=== PATIENT | female | born 1965 | race African-American/Black ===

== ENCOUNTER 2018-02-11 00:45 | Emergency (ER) | payer OTHER ==
[~2018-02-11] VITALS: Ht 170.2 cm; Wt 190.5 kg
[2018-02-11] MEDS ORDERED: ALBUTEROL SULF 2.5 MG/0.5ML(0.5%) NEB SOLN NEB STA (00:59)
[2018-02-11] MEDS ORDERED: IPRATROPIUM BROM 0.5 MG/2.5ML INH SOL NEB ONE ×2 (01:00→15:00)
[2018-02-11 03:54] LABS: Basophils # (auto) 0 uL; Basophils % (auto) 0.3 % (0.0-2.0); Eosinophils # (auto) 0 uL; Eosinophils % (auto) 0.1 % (0.0-7.0); Hematocrit 44.6 % (36.0-46.0); Hemoglobin 14.8 g/dL (12.2-16.2); Lymphocytes # (auto) 0.9 uL; Lymphocytes % (auto) 6.6 % (10.0-50.0); Mean Corpuscular Hemoglobin 30.6 pg (28.0-32.0); Mean Corpuscular Hgb Conc. 33.1 g/dL (32.0-36.0); Mean Corpuscular Volume 92.6 fL (80.0-100.0); Monocytes # (auto) 0.8 uL; Monocytes % (auto) 5.7 % (0.0-12.0); Neutrophils # (auto) 11.9 uL; Neutrophils % (auto) 87.3 % (37.0-80.0); Platelet Count (auto) 203 10^3/uL (140-450); Red Blood Cells 4.82 10^6/uL (4.0-5.20); Red Cell Distribution Width 14.4 % (11.8-14.3); White Blood Cell 13.6 10^3/uL (4.4-10.8)
[2018-02-11 04:01] LABS: Albumin 3.2 g/dL (3.4-5.0); BUN/Creatinine Ratio 12.2; Calcium 8.8 mg/dL (8.5-10.1); Potassium 3.6 mmol/L (3.5-5.1)
[2018-02-11 04:06] LABS: Bilirubin, Total 0.4 mg/dL (0.2-1.0)
[2018-02-11 05:21] LABS: INR 1.04 (0.9-1.15); Partial Thromboplastin Time 27.1 sec (22.64-33.71); Prothrombin Time 11.3 sec (9.37-12.3)
[2018-02-11 05:45] VITALS: BP 136/62
[2018-02-11] MEDS ORDERED: IOHEXOL 350 MG/ML 100ML IJ ONE (08:35)
[2018-02-11 08:57] VITALS: BP 136/62
[2018-02-11 10:30] VITALS: BP 136/66
[2018-02-11] MEDS ORDERED: cefTRIAXone 1GM/10ml IVPUSH 10 ML IV ONE (11:00)
[2018-02-11 14:42] LABS: Urine Bacteria NONE SEEN /hpf (None Seen); Urine Blood Negative /uL (Negative); Urine Mucus FEW (None Seen); Urine WBC 2 /hpf (0 - 5)
[2018-02-11 14:58] LABS: Urine Specific Gravity > 1.050 (1.001-1.035)
[2018-02-11] MEDS ORDERED: ALBUTEROL SULF 2.5 MG/0.5ML(0.5%) NEB SOLN NEB ONE (15:00)
[2018-02-11 18:45] VITALS: BP 129/75
== END 2018-02-11 18:56 | disposition short-term general hospital (02) ==
LOC: EDBD 00:45 → ER 00:45
DX: J18.9 Pneumonia, unspecified organism (principal); I10 Essential (primary) hypertension; R74.8 Abnormal levels of other serum enzymes; E44.1 Mild protein-calorie malnutrition; R79.1 Abnormal coagulation profile; E66.01 Morbid (severe) obesity due to excess calories; Z68.43 Body mass index [BMI] 50.0-59.9, adult
CPT/HCPCS: 36415; 36600; 71045; 71275; 80053; 81001; 82805; 83605; 83880; 84484; 85025; 85379; 85610; 85730; 87040; 87804; 93005; 94640; 96374; 99285; Q9967; 94644

== ENCOUNTER 2025-04-02 22:42 | Inpatient (IN) | payer MEDICARE, MEDICAID ==
[~2025-04-02] VITALS: Ht 167.6 cm; Wt 219.0 kg
--- NOTE | 2025-04-02 23:09 | ECG ---
[facility] Test Date: 2025-04-02 Test Time: 22:59:31 Pat Name: KELLIE LEDEZMA Department: ED Room: [address] [place] [address] Gender: F Pharmacy Cashier: SHERRI : 1965 Requested By: MARY CARMEN STOVALL Order Number: [id number] Reading MD: Derian Richardson Measurements Intervals [place] Rate: 131 P: 0 CT: 0 QRS: 27 QRSD: 93 T: 73 QT: 329 QTc: 486 Interpretive Statements Atrial fibrillation Low voltage, precordial leads Borderline prolonged QT interval Baseline wander in lead(s) II Electronically Signed On 04-03-2025 12:49:06 PDT by Derian Richardson Please click the below link to view image of tracing.
--- NOTE | 2025-04-02 23:12 | ED.PDOC ---
History of Present Illness HPI Comments 59 y/o morbidly obese F is BIBA from home for worsening chronic bilateral leg edema for the past week, with associated shortness of breath w/exertion. Patient denies having any chest pain, cough, congestion, fever, chills, or further associated symptoms. Chief Complaint: Shortness of Breath Time Seen by MD: 23:00 Primary Care Provider: DENIED Reviewed Notes: Nurses Notes, Medications, Allergies Allergies: Coded Allergies: NO KNOWN ALLERGIES (Unverified , 02/11/18) Information Source: Patient Mode of Arrival: EMS Severity: Moderate Past Medical History Past Medical History (Other): PNA, chronci edema Surgical History: Denies all surgeries SOFTWARE DEVELOPER CONSULTANT History: Denies all SOFTWARE DEVELOPER CONSULTANT Hx Family History Family History: Unknown Social History Smoker: Non-Smoker Alcohol: Denies ETOH Use Drugs: Denies Drug Use Lives In: Home All Other Systems: Reviewed and Negative (see HPI) Physical Exam General Appearance: No Apparent Distress, Obese HEENT: Normal ENT Inspection, Pharynx Normal, TMs Normal Neck: Full Range of Motion, Non-Tender, Normal, Normal Inspection Respiratory: Chest Non-Tender, Lungs Clear, No Accessory Muscle Use, No Respiratory Distress, Normal Breath Sounds Cardiovascular: No Edema, No JVD, No Murmur, No Gallop, Normal Peripheral Pulses, Regular Rate/Rhythm Breast Exam: Deferred Gastrointestinal: No Organomegaly, Non Tender, No Pulsatile Mass, Normal Bowel Sounds, Soft Genitalia: Deferred Pelvic: Deferred Rectal: Deferred Extremities: No calf tenderness, Normal capillary refill, Normal range of motion, Non-tender, No pedal edema, Swelling (3+edema to bilateral legs) Musculoskeletal : Apperance: Normal Neurologic: Alert, 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 Was a procedure done?: No Differential Dx Considerations may include: AFIB, URI, PNA, viral syndrome, HI, PE, ACS, among others X-Ray, Labs, Meds, VS Vital Signs Date Time Temp Pulse Resp B/P (MAP) Pulse Ox O2 Delivery O2 Flow Rate FiO2 04/03/25 00:15 112 17 96 Nasal Cannula* 3 32 04/02/25 23:45 113 17 137/79 (98) 93 04/02/25 23:01 131 04/02/25 22:52 97.8 98 20 129/86 (100) 98 97.8 Lab Test 04/02/25 23:05 Range/Units White Blood Count 10.6 4.4-10.8 10^3/uL Red Blood Count 4.04 4.0-5.20 10^6/uL Hemoglobin 12.7 12.2-16.2 g/dL Hematocrit 38.6 36.0-46.0 % Mean Corpuscular Volume 95.3 80.0-100.0 fL Mean Corpuscular Hemoglobin 31.3 28.0-32.0 pg Mean Corpuscular Hemoglobin Concent 32.8 32.0-36.0 g/dL Red Cell Distribution Width 17.4 H 11.8-14.3 % Platelet Count 189 140-450 10^3/uL Mean Platelet Volume 10.7 6.9-10.8 fL Neutrophils (%) (Auto) 83.0 H 37.0-80.0 % Lymphocytes (%) (Auto) 11.1 10.0-50.0 % Monocytes (%) (Auto) 4.6 0.0-12.0 % Eosinophils (%) (Auto) 0.8 0.0-7.0 % Basophils (%) (Auto) 0.5 0.0-2.0 % Neutrophils # (Auto) 8.8 H 1.6-8.6 10 ^3/uL Lymphocytes # (Auto) 1.2 0.4-5.4 10 ^3/uL Monocytes # (Auto) 0.5 0-1.3 10 ^3/uL Eosinophils # (Auto) 0.1 0-0.8 10 ^3/uL Basophils # (Auto) 0 0-0.2 10 ^3/uL Nucleated Red Blood Cells 0.1 % Prothrombin Time 11.4 9.3-11.8 sec Prothrombin Time INR 1.08 0.9-1.15 Activated Partial Thromboplast Time 26.8 24.5-34.5 SEC D-Dimer, Quantitative 1.02 H 0.0-0.49 mg/L FEU Sodium Level 143 136-145 mmol/L Potassium Level 4.2 3.5-5.1 mmol/L Chloride Level 106 98-107 mmol/L Carbon Dioxide Level 28 20-31 mmol/L Anion Gap 9 5-15 Blood Urea Nitrogen 9 9-23 mg/dL Creatinine 0.78 0.550-1.02 mg/dL Glomerular Filtration Rate Calc 88 >90 mL/min BUN/Creatinine Ratio 11.5 10.0-20.0 Serum Glucose 112 H 74-106 mg/dL Calcium Level 10.1 8.7-10.4 mg/dL Total Bilirubin 1.2 H 0.2-1.0 mg/dL Aspartate Amino Transferase (AST) 32 13-40 U/L Alanine Aminotransferase (ALT) 27 7-40 U/L Alkaline Phosphatase 130 H 46-116 U/L Troponin I High Sensitivity 72 *H </=34 ng/L B-Type Natriuretic Peptide 200.59 0-100 pg/mL Total Protein 7.3 5.7-8.2 g/dL Albumin 4.5 3.2-4.8 g/dL Time of 1ST Reevaluation: 23:30 Reevaluation 1ST: Unchanged Patient Education/Counseling: Diagnosis, Treatment Family Education/Counseling: No Family Present Additional Information [place] [address] Ph: [phone] DIAGNOSTIC IMAGING Diagnostic Imaging Report : [id number] Signed PATIENT: KELLIE LEDEZMA ACCT: [id number] UNIT: [id number] : 1965 LOC: ER ROOM / BED: / AGE / SEX: 59 / F ADM STATUS: REG ER SERVICE [id number] ORDERING PHYSICIAN: MARY CARMEN STOVALL MD PROCEDURE(s): CXRP - CHEST PORTABLE REASON: SOB ORDER NUMBER(s): [id number], ACCESSION NUMBER(s): [id number] CHEST RADIOGRAPH Indication: SOB Technique: Single frontal view of the chest was obtained COMPARISON: None FINDINGS: Lines and Tubes: None Lungs: There is moderate diffuse increased prominence of the pulmonary vasculature. No definite evidence of consolidation. Small bilateral pleural effusions are not excluded. No pneumothorax. Cardiomediastinal contours: Cardiomegaly. Bones: Unremarkable IMPRESSION: 1. Cardiomegaly and diffuse increased prominence of the pulmonary vasculature. 2. Small bilateral pleural effusions are not excluded. ATED BY: VICETNE HOLLIS MD DICTATED DATE/TIME: 04/03/25 0018 SIGNED BY: VICENTE HOLLIS MD SIGNED DATE/TIME: 04/03/25 0018 CC: Departure 1 Departure Time of Disposition: 00:14 Impression: Primary Impression: Peripheral edema Additional Impressions: Morbid obesity Pulmonary hypertension Intermediate coronary syndrome Disposition: ADMITTED INPATIENT Admit to: Tele Condition: Guarded Comments Bilateral Leg Edema with Shortness of Breath Chief Complaint: Worsening bilateral leg edema with shortness of breath History of Present Illness: 59-year-old female with a history of morbid obesity and chronic bilateral leg edema presents with worsening leg swelling over the past week. Patient reports increased difficulty walking due to shortness of breath with exertion. She denies significant leg pain but notes that her legs are more swollen than her baseline. She has been experiencing dyspnea with movement, which limits her mobility. Review of Systems: Constitutional: Denies fever, chills Cardiovascular: Reports leg edema Respiratory: Reports dyspnea on exertion Musculoskeletal: Denies leg pain All other systems reviewed and negative Medications: No current medications documented Allergies: No known allergies documented Past Medical History: 1. Morbid obesity 2. Chronic bilateral leg edema Lab Results: BNP: 200 Troponin: 60 (elevated) D-dimer: 1.02 (elevated) Imaging and Other Relevant Results: Chest X-ray: Demonstrates cardiomegaly and increased pulmonary vascular markings CT Angiogram: Unable to perform due to weight limitations of scanner Medical Decision Making: Summary Statement: 59-year-old female with morbid obesity presenting with worsening bilateral leg edema, dyspnea on exertion, elevated cardiac markers, and inability to complete CT imaging due to weight limitations. Problem List: 1. Worsening leg edema 2. Dyspnea on exertion 3. Elevated cardiac markers 4. Morbid obesity Differential Diagnosis: 1. Pulmonary embolism 2. Pulmonary hypertension 3. Acute coronary syndrome 4. Decompensated heart failure ED Course: Patient evaluated with labs and chest x-ray. Attempted CT angiogram but unable to complete due to weight limitations. Decision made to admit for further cardiac workup and possible VQ scan. Assessment and Plan: 1. Acute cardiopulmonary condition with multiple potential etiologies: - Admit to hospital for further evaluation - Plan for VQ scan to evaluate for PE given inability to perform CTA - Cardiac workup including serial troponins and further assessment of elevated BNP 2. Suspected pulmonary hypertension: - Will require complete cardiac evaluation during admission - Echo to assess cardiac function and pulmonary pressures 3. Morbid obesity: - Impacts current diagnostic capabilities - Will require weight management consultation during admission Billing Information: ICD-10: R60.0 - Localized edema ICD-10: R06.02 - Shortness of breath ICD-10: E66.01 - Morbid obesity ICD-10: R93.1 - Abnormal findings on diagnostic imaging of heart and coronary circulation ICD-10: I27.20 - Pulmonary hypertension, unspecified Critical Care Note Critical Care Time?: Yes (35 min-critical care time only) Critical care comment: Total critical care time: Approximately 36 minutes Due to a high probability of clinically significant, life threatening deterioration, the patient required my highest level of preparedness to inte rvene emergently and I personally spent this critical care time directly and personally managing the patient. This critical care time included obtaining a history; examining the patient; pulse oximetry; ordering and review of studies; arranging urgent treatment with development of a management plan; evaluation of patient's response to treatment; frequent reassessment; and, discussions with other providers. This critical care time was performed to assess and manage the high probability of imminent, life-threatening deterioration that could result in multi-organ failure. It was exclusive of separately billable procedures and treating other patients. Stability Stability form required: No Heart Score Heart Score: Heart Score Response (Comments) Value History Moderate Suspicious 1 EKG Repolarization Disturb 1 Age 45-64 1 Risk Factors 1 or 2 risk factors 1 Troponin 1-2 x's Normal limit 1 Total 5 I personally scribed for MARY CARMEN STOVALL MD ([email or web address]) on 04/02/25 at 23:12. Electronically submitted by Marshal Ward ([email or web address]). I personally scribed for MARY CARMEN STOVALL MD ([email or web address]) on 04/03/25 at 01:04. Electronically submitted by Marshal Ward ([email or web address]). MARY CAMREN STOVALL MD April 02, 2025 23:12
[2025-04-02 23:23] LABS: Basophils # (auto) 0 10 ^3/uL (0-0.2); Basophils % (auto) 0.5 % (0.0-2.0); Eosinophils # (auto) 0.1 10 ^3/uL (0-0.8); Eosinophils % (auto) 0.8 % (0.0-7.0); Hematocrit 38.6 % (36.0-46.0); Hemoglobin 12.7 g/dL (12.2-16.2); Lymphocytes # (auto) 1.2 10 ^3/uL (0.4-5.4); Lymphocytes % (auto) 11.1 % (10.0-50.0); Mean Corpuscular Hemoglobin 31.3 pg (28.0-32.0); Mean Corpuscular Hgb Conc. 32.8 g/dL (32.0-36.0); Mean Corpuscular Volume 95.3 fL (80.0-100.0); Monocytes # (auto) 0.5 10 ^3/uL (0-1.3); Monocytes % (auto) 4.6 % (0.0-12.0); Neutrophils # (auto) 8.8 10 ^3/uL (1.6-8.6); Nucleated Red Blood Cells % 0.1 %; Platelet Count (auto) 189 10^3/uL (140-450); Red Blood Cells 4.04 10^6/uL (4.0-5.20); Red Cell Distribution Width 17.4 % (11.8-14.3); White Blood Cell 10.6 10^3/uL (4.4-10.8)
[2025-04-02 23:36] LABS: INR 1.08 (0.9-1.15); Partial Thromboplastin Time 26.8 SEC (24.5-34.5); Prothrombin Time 11.4 sec (9.3-11.8)
[2025-04-02 23:40] LABS: Alanine Aminotransferase 27 U/L (7-40); Albumin 4.5 g/dL (3.2-4.8); Anion Gap 9 (5-15); Aspartate Aminotransferase 32 U/L (13-40); BUN/Creatinine Ratio 11.5 (10.0-20.0); Bilirubin, Total 1.2 mg/dL (0.2-1.0); Calcium 10.1 mg/dL (8.7-10.4); Carbon Dioxide 28 mmol/L (20-31); Chloride 106 mmol/L (98-107); Potassium 4.2 mmol/L (3.5-5.1); Sodium 143 mmol/L (136-145); Total Protein 7.3 g/dL (5.7-8.2)
[2025-04-02 23:43] LABS: Alkaline Phosphatase 130 U/L (46-116); Blood Urea Nitrogen 9 mg/dL (9-23); Glucose 112 mg/dL (74-106)
[2025-04-03 00:15] VITALS: PULSE 112; RESP 17; O2SAT 96
--- NOTE | 2025-04-03 00:20 | DVH ---
CHEST RADIOGRAPH Indication: SOB Technique: Single frontal view of the chest was obtained COMPARISON: None FINDINGS: Lines and Tubes: None Lungs: There is moderate diffuse increased prominence of the pulmonary vasculature. No definite evide nce of consolidation. Small bilateral pleural effusions are not excluded. No pneumothorax. Cardiomediastinal contours: Cardiomegaly. Bones: Unremarkable IMPRESSION: 1. Cardiomegaly and diffuse increased prominence of the pulmonary vasculature. 2. Small bilateral pleural effusions are not excluded.
[2025-04-03] MEDS: IOHEXOL 350 MG/ML 100ML IJ ONE (00:21)
[2025-04-03] MEDS ORDERED: SODIUM CHLORIDE 0.9% 500 ML IV ONE (00:30)
[2025-04-03] MEDS: FUROSEMIDE 40 MG/4 ML VIAL IV ONE (02:28)
[2025-04-03] MEDS: ASPirin-EC 81 mg tab PO ONE (02:28)
[2025-04-03 02:57] LABS: Urine Bacteria None Seen /hpf (None Seen)
[2025-04-03 03:32] LABS: Urine Blood Negative /uL (Negative); Urine Clarity Turbid (Clear); Urine Color Yellow (Yellow); Urine Mucus FEW (None Seen); Urine Protein, UAD 2+ (Negative); Urine Specific Gravity 1.033 (1.001-1.035); Urine Squamous Epithelial Cell FEW /hpf (<5); Urine Urobilinogen Normal (Negative); Urine WBC 1 /HPF (0-5)
[2025-04-03] MEDS ORDERED: ACETAMINOPHEN 325 MG TAB PO PRN (05:30)
[2025-04-03] MEDS ORDERED: NITROGLYCERIN 0.4 MG SL TAB SL PRN (05:30)
[2025-04-03] MEDS ORDERED: MORPHINE SULFATE INJ 2 MG/ml SYRG IV PRN (05:30)
[2025-04-03] MEDS ORDERED: ONDANSETRON HCL 4 MG/2 ML VIAL IV PRN (05:30)
[2025-04-03] MEDS: APIXABAN 5 MG TAB PO SCH (05:42)
[2025-04-03 05:43] LABS: Triglycerides 66 mg/dL (< 150)
[2025-04-03 05:44] LABS: LDL Cholesterol 75 mg/dL (< 100)
[2025-04-03 05:45] LABS: Cholesterol 139 mg/dL (< 200); HDL Cholesterol 45 mg/dL (40-59)
[2025-04-03] MEDS: FUROSEMIDE 20 MG/2 ML VIAL IV SCH (06:22)
[2025-04-03 08:00] VITALS: PULSE 133; RESP 20; O2SAT 97
[2025-04-03] MEDS: METOPROLOL TARTRATE 50 MG TAB PO SCH (10:00)
[2025-04-03] MEDS: ASPirin 81 mg TAB PO SCH (10:00)
[2025-04-03] MEDS ORDERED: ENOXAPARIN SOD 40 MG/0.4 ML SYRINGE SC SCH (10:00)
--- NOTE | 2025-04-03 11:48 | DVHCONRES ---
Date Seen: April 03, 2025 Resident Creating Document: THELMA CANDELARIO RESIDENT Reason for Consultation CHF History of Present Illness 59 year old female with past medical history of Paroxysmal Afib 2 years ago where she was prescribed metoprolol, which patient stopped taking, presented with complaints of bilateral pedal edema associated with shortness of breath. pt mentioned that she had pedal edema for last 4 years, but for last 3 days, she had edema on thighs, which made her come to the ER. She also mentioned she had redness in the lower right leg for last 4 years. She mentioned she had shortness of breath for last 3 weeks and more worse for last 3 days, correlating with NHYA class III/IV. Patient mentioned that she had an echo last year which was within normal limit, never had any stress test or LHC. On presenting to the ER, she was found to be in Afib, was started on metoprolol which she refused, started on IV lasix. Cardiology was consulted for CHF. She is currently on 2L O2, still in Afib. PMH Afib, ?CHF PSH denied Social history denied smoking, alcohol, marijuana and any other drug intake Family history denied any history of cardiac comorbidities in family members Allergies: Coded Allergies: NO KNOWN ALLERGIES (Unverified , 02/11/18) Current Medications Current Medications Medications (Trade) Dose Ordered Sig/Ani Route PRN Reason Start Time Stop Time Status Last Admin Apixaban (Eliquis) 10 mg BID PO 04/03/25 03:30 04/10/25 03:29 Furosemide (Lasix Injection) 20 mg BIDD IV 04/03/25 06:00 04/03/25 06:22 Aspirin 162 mg DAILY PO 04/03/25 10:00 Atorvastatin Calcium (Lipitor) 10 mg HS PO 04/03/25 22:00 Metoprolol Tartrate (Lopressor Tablet) 50 mg BID PO 04/03/25 10:00 Ondansetron HCl (Zofran) 4 mg Q4HP PRN IV NAUSEA / VOMITING 04/03/25 05:30 Enoxaparin Sodium (Lovenox) 40 mg DAILY SC 04/03/25 10:00 Hold Acetaminophen (Tylenol Tablet) 650 mg Q6HP PRN PO PAIN SCALE 1-3 OR TEMP>100.4 04/03/25 05:30 Nitroglycerin (Ntrostat Sublingual) 0.4 mg Q5MINP PRN SL FOR CHEST PAIN 04/03/25 05:30 Morphine Sulfate 2 mg Q30M PRN IV FOR CHEST PAIN 04/03/25 05:30 Review of Systems As described in the HPI Vital Signs Vital Signs Date Time Temp Pulse Resp B/P (MAP) Pulse Ox O2 Delivery O2 Flow Rate FiO2 04/03/25 10:00 133 20 107/80 (89) 98 04/03/25 08:00 Nasal Cannula* 2 28 04/03/25 08:00 98.3 98.3 Physical Exam Examination General Appearance: Alert, Oriented X3, Cooperative, No acute distress HEENT: EOMI Respiratory: Clear to auscultation, Normal air movement Cardiovascular: Regular rate, Normal S1, Normal S2 Abdominal: Normal bowel sounds Extremities: Bilateral Pedal edema, No cyanosis, No edema, Normal pulses, No tenderness/swelling Skin: No rashes, No breakdown Neuro: Normal gait, Normal speech, Strength at 5/5 X4 ext, Normal tone, Sensation intact, Cranial nerves 3-12 NL, Reflexes 2+ Psych/Mental Status: Mental status NL, Mood NL Labs/Diagnostic Data Labs Test 04/03/25 03:00 04/03/25 02:56 04/03/25 02:06 04/02/25 23:05 Range/Units Troponin I High Sensitivity 90 *H </=34 ng/L Thyroid Stimulating Hormone (TSH) 7.75 H 0.55-4.78 uIU/mL Urine Color Yellow Yellow Urine Clarity Turbid H Clear Urine pH 5.0 5.0-9.0 Urine Specific [place] 1.033 1.001-1.035 Urine Protein 2+ H Negative Urine Ketones Trace Negative Urine Blood Negative Negative /uL Urine Nitrite Negative Negative Urine Bilirubin Negative Negative Urine Urobilinogen Normal Negative mg/dL Urine Leukocyte Esterase Negative Negative /uL Urine RBC None seen 0 - 4 /hpf Urine Microscopic WBC 1 0-5 /HPF Urine Squamous Epithelial Cells Few <5 /hpf Urine Calcium Oxalate Crystals Mod None Seen Urine Bacteria None seen None Seen /hpf Urine Mucus Few None Seen Urine Glucose Normal Normal mg/dL Triglycerides Level 66 < 150 mg/dL Cholesterol Level 139 < 200 mg/dL LDL Cholesterol 75 < 100 mg/dL HDL Cholesterol 45 40-59 mg/dL White Blood Count 10.6 4.4-10.8 10^3/uL Red Blood Count 4.04 4.0-5.20 10^6/uL Hemoglobin 12.7 12.2-16.2 g/dL Hematocrit 38.6 36.0-46.0 % Mean Corpuscular Volume 95.3 80.0-100.0 fL Mean Corpuscular Hemoglobin 31.3 28.0-32.0 pg Mean Corpuscular Hemoglobin Concent 32.8 32.0-36.0 g/dL Red Cell Distribution Width 17.4 H 11.8-14.3 % Platelet Count 189 140-450 10^3/uL Mean Platelet Volume 10.7 6.9-10.8 fL Neutrophils (%) (Auto) 83.0 H 37.0-80.0 % Lymphocytes (%) (Auto) 11.1 10.0-50.0 % Monocytes (%) (Auto) 4.6 0.0-12.0 % Eosinophils (%) (Auto) 0.8 0.0-7.0 % Basophils (%) (Auto) 0.5 0.0-2.0 % Neutrophils # (Auto) 8.8 H 1.6-8.6 10 ^3/uL Lymphocytes # (Auto) 1.2 0.4-5.4 10 ^3/uL Monocytes # (Auto) 0.5 0-1.3 10 ^3/uL Eosinophils # (Auto) 0.1 0-0.8 10 ^3/uL Basophils # (Auto) 0 0-0.2 10 ^3/uL Nucleated Red Blood Cells 0.1 % Prothrombin Time 11.4 9.3-11.8 sec Prothrombin Time INR 1.08 0.9-1.15 Activated Partial Thromboplast Time 26.8 24.5-34.5 SEC D-Dimer, Quantitative 1.02 H 0.0-0.49 mg/L FEU Sodium Level 143 136-145 mmol/L Potassium Level 4.2 3.5-5.1 mmol/L Chloride Level 106 98-107 mmol/L Carbon Dioxide Level 28 20-31 mmol/L Anion Gap 9 5-15 Blood Urea Nitrogen 9 9-23 mg/dL Creatinine 0.78 0.550-1.02 mg/dL Glomerular Filtration Rate Calc 88 >90 mL/min BUN/Creatinine Ratio 11.5 10.0-20.0 Serum Glucose 112 H 74-106 mg/dL Calcium Level 10.1 8.7-10.4 mg/dL Total Bilirubin 1.2 H 0.2-1.0 mg/dL Aspartate Amino Transferase (AST) 32 13-40 U/L Alanine Aminotransferase (ALT) 27 7-40 U/L Alkaline Phosphatase 130 H 46-116 U/L B-Type Natriuretic Peptide 200.59 0-100 pg/mL Total Protein 7.3 5.7-8.2 g/dL Albumin 4.5 3.2-4.8 g/dL Assessment Assessment/Plan #acute hypoxic resp failure likely due to CHF #?CHF ( systolic/diastolic ) ?unknown etiology as of now, ?hypothyroidism ?Ischaemic etiology #elevated TSH #Paroxysmal Afib ( not on anticoagulation ) -[id number] 2 -HASBLED 0 #Elevated Troponin NSTEMI Type II -likely due to CHF Plan -continue with diuretics 40mg BID -ekg, trops, bnp, echo -TSH, HbA1c, lipid panel -lower extremity Doppler study -free t3/t4, -k>4, Mg>2 -PT/INR -therapeutic lovenox 1mg/kg BID -Metoprolol tartrate 25mg BID pt is refusing any procedure and refusing medications awaiting echo results, will have discussion with the patient again after echo results Case discussion with Dr Hernandez Plan/Recommendation Patient was discussed with Resident Physician Dr. Thelma Candelario. I agree with his Assessment and Plan, which was formulated with me. Plan discussed with: Patient THELMA CANDELARIO RESIDENT April 03, 2025 11:48 DAPHNIE HERNANDEZ DO April 03, 2025 21:37
[2025-04-03 12:17] LABS: Free T4 (Free Thyroxine) 1.37 ng/dL (0.89-1.76)
[2025-04-03 12:18] LABS: Free T3 3.19 pg/mL (2.3-4.2)
--- NOTE | 2025-04-03 14:28 | DVH ---
US BiLat Lower DVT HISTORY: rule out DVT COMPARISON: None TECHNIQUE: Duplex doppler evaluation of the deep venous system of the lower extremity from the common femoral veins, superficial femoral vein, great saphenous vein, deep femoral vein, popliteal vein, an d calf veins, including color doppler and spectral/pulsed waveform analysis, was performed. FINDINGS: Right: - Common femoral vein: Not seen. - Deep femoral vein: Not seen. - Femoral vein: Compressible - Popliteal vein: Not seen. - Posterior tibial vein: Not seen. - Peroneal vein: Not seen. - Other: Nothing Left: - Common femoral vein: Not seen. - Deep femoral vein: Not seen. - Femoral vein: Not seen. - Popliteal vein: Not seen. - Posterior tibial vein: Not seen. - Peroneal vein: Not seen. - Other: Nothing IMPRESSION: Limited study due to patient large body habitus, however the proximal right femoral vein is patent wi thout deep venous thrombus.
[2025-04-03] MEDS: FUROSEMIDE 20 MG/2 ML VIAL IV ONE (14:49)
[2025-04-03] MEDS: METOPROLOL TARTRATE 1MG/1ML-5ML VIAL IV ONE ×2 (14:49→15:58)
[2025-04-03] MEDS: ENOXAPARIN SOD 150 MG/1 ML SYRINGE SC ONE (14:55)
--- NOTE | 2025-04-03 15:46 | DVHPN2 ---
Subjective Continues to complain of shortness of breath. Reviewed: Care Plan, H&P, Labs Changes from previous H/P or p: No Changes General: Per HPI Objective Vitals Vital Signs Date Time Temp Pulse Resp B/P (MAP) Pulse Ox O2 Delivery O2 Flow Rate FiO2 04/03/25 15:34 119 101/74 04/03/25 14:00 20 98 04/03/25 12:00 98.2 98.2 04/03/25 08:00 Nasal Cannula* 2 28 General Appearance: Alert, Oriented X3, Cooperative, mild distress, Other (Obese) HEENT: Atraumatic, PERRLA Lungs: Clear to auscultation, Normal air movement Cardiovascular: Normal S1, Normal S2 Abdomen: Normal bowel sounds, Soft, No tenderness Musculoskeletal: Normal sensory function, Normal motor function Skin: Dry, Intact Psych/Mental Status: Mental status NL, Mood NL Medications Current Medications Medications Dose Ordered Sig/Ani Route Start Time Stop Time Status Last Admin Dose Admin Aspirin 162 mg DAILY PO 04/03/25 10:00 04/03/25 13:03 162 MG Atorvastatin Calcium 10 mg HS PO 04/03/25 22:00 Ondansetron HCl 4 mg Q4HP PRN IV 04/03/25 05:30 Acetaminophen 650 mg Q6HP PRN PO 04/03/25 05:30 Nitroglycerin 0.4 mg Q5MINP PRN SL 04/03/25 05:30 Morphine Sulfate 2 mg Q30M PRN IV 04/03/25 05:30 Furosemide 40 mg BIDD IV 04/03/25 18:00 Enoxaparin Sodium 150 mg Q12HR SC 04/03/25 23:59 Metoprolol Tartrate 25 mg BID PO 04/03/25 22:00 Laboratory Results Laboratory Tests 04/02/25 23:05 Chemistry Test 04/02/25 23:05 04/03/25 13:46 Albumin 4.5 g/dL (3.2-4.8) Calcium Level 10.1 mg/dL (8.7-10.4) Total Protein 7.3 g/dL (5.7-8.2) Magnesium Level 1.9 mg/dL (1.6-2.6) Coagulation Test 04/02/25 23:05 Prothrombin Time 11.4 sec (9.3-11.8) Prothrombin Time INR 1.08 (0.9-1.15) Activated Partial Thromboplast Time 26.8 SEC (24.5-34.5) D-Dimer, Quantitative 1.02 mg/L FEU (0.0-0.49) H Lipid panel Test 04/03/25 02:06 Cholesterol Level 139 mg/dL (< 200) HDL Cholesterol 45 mg/dL (40-59) Triglycerides Level 66 mg/dL (< 150) Cardiac Markers Test 04/02/25 23:05 B-Type Natriuretic Peptide 200.59 pg/mL (0-100) LFT Test 04/02/25 23:05 Alanine Aminotransferase (ALT) 27 U/L (7-40) Alkaline Phosphatase 130 U/L (46-116) H Aspartate Amino Transferase (AST) 32 U/L (13-40) Total Bilirubin 1.2 mg/dL (0.2-1.0) H HgA1c, TSH Test 04/03/25 03:00 04/03/25 03:10 Thyroid Stimulating Hormone (TSH) 7.75 uIU/mL (0.55-4.78) H Hemoglobin A1c 5.3 % A1C (<5.7) Urinalysis Test 04/03/25 02:56 Urine Color Yellow (Yellow) Urine Clarity Turbid (Clear) H Urine pH 5.0 (5.0-9.0) Urine Specific [place] 1.033 (1.001-1.035) Urine Protein 2+ (Negative) H Urine Ketones Trace (Negative) Urine Blood Negative /uL (Negative) Urine Nitrite Negative (Negative) Urine Bilirubin Negative (Negative) Urine Urobilinogen Normal mg/dL (Negative) Urine Leukocyte Esterase Negative /uL (Negative) Urine RBC None seen /hpf (0 - 4) Urine Microscopic WBC 1 /HPF (0-5) Urine Squamous Epithelial Cells Few /hpf (<5) Urine Calcium Oxalate Crystals Mod (None Seen) Urine Bacteria None seen /hpf (None Seen) Urine Mucus Few (None Seen) Urine Glucose Normal mg/dL (Normal) Labs and/or images reviewed: Labs reviewed by me, Image(s) reviewed by me Assessment/Plan Assessment/Plan Impression: -A.fib with RVR -Acute on Chronic Systolic Heart Failure -morbid obesity -bilateral lower extremity swelling, DVT ruled out -acute on chronic hypoxic respiratory failure -NSTEMI type 2 secondary to AFib with RVR and diastolic/systolic heart failure -hypothyroidism Plan: -cardiology consultation: Plan of care discussed with Cardiology team -continue rate control -echocardiogram, pending. Preliminary results with noted decreased ejection fraction -continue full-dose anticoagulation -thyroid supplementation -O2 supplementation to keep saturation greater than 92% -aggressive IV diuresis -start guideline directed medical therapy for heart failure -reassess for transfer stability to [facility] in a.m.. Currently unstable given patient continues to be in AFib with RVR and dyspneic. Critical care time spent with patient discussing and formulating plan of care: 40 minutes. This does not include time spent performing procedures. This medical document was created using an electronic medical record system with [employer] dictation system. Although this document has been carefully reviewed, there may still be some phonetic and typographical errors. These areas are purely typographical due to imperfections of the software programs, and do not reflect any compromise in the patient's medical care. Plan discussed with: Patient, Other (RN) Date of Service: April 03, 2025 Billing Provider: LUDY JOSE NP Common Visit Codes: [id number] CARE 30-74 MIN LUDY JOSE NP April 03, 2025 15:46
--- NOTE | 2025-04-03 16:37 | DVHSR ---
APPROVED REPORT EXAM: LIMITED Two-dimensional and M-mode echocardiogram with Doppler and color Doppler. Blood Pressure: 111/76 mmHg INDICATION ef RISK FACTORS Obesity: Height: 5'6, Weight: 475 DIMENSIONS LVDd5.9 (3.8-5.7cm)LA (2D)5.2 (1.9-4.0cm)Aortic Root3.1 (2.0-3.7cm) LVDs5.3 (2.5-4.0cm)LA (MM) (1.9-4.0cm)Aortic Cusp Exc1.7 (1.5-2.0cm) EF (%) 18.0 (55-70%)Rt. Atrium5.3 (1.9-4.0cm)Asc. Aorta cm IVSd1.0 (0.7-1.1cm)RV (D)5.6 (1.8-2.4cm) PWd1.2 (0.7-1.1cm) Mitral Valve MitralMitral Stenosis E wavem/sMV Mean GR.4mmHg A wavem/sMV Peak GR.99mmHg E/A ratio0.02D MVAcm2 Aortic Valve Aortic ValveAortic Stenosis V10.94m/Gurwinder Mean GR.5mmHg V21.32m/Gurwinder Peak GR.7mmHg LVOT Diameter2.3 (1.8-2.4cm)Doppler AVA2.96cm2 Pulmonic Valve V20.97m/s Tricuspid Valve TR Velocity2.73m/s [id number] Other Information Quality : Technically LimitedRhythm : Technically limited study due to body habitus.patient position.patient moving. Conclusion Technically difficult study. Difficult acoustic windows. LV enlargement. Concentric LVH. Biatrial enlargement. Mild thickening of the anterior mitral leaflet. Aortic and tricuspid are structurally normal. The p ulmonic valve is not clearly visualized. Left ventricular function is diminished. Underlying global hypokinesis. EF is approximately 20%. R V function appears to be moderately diminished. Dopplers unremarkable. No pericardial effusion masses or vegetations.
[2025-04-03] MEDS: FUROSEMIDE 40 MG/4 ML VIAL IV SCH (17:30)
[2025-04-03 18:26] VITALS: BP 118/73; PULSE 65; RESP 20; TEMP 97.8; O2SAT 98
[2025-04-03 20:00] VITALS: PULSE 132
[2025-04-03 20:32] LABS: Amphetamine Screen, Urine Neg (NEGATIVE); Barbiturate Scree,Urine Neg (NEGATIVE); Benzodiazephine Screen, Urine Neg (NEGATIVE); Cannabinoid Screen, Urine Neg (NEGATIVE); Cocaine Screen, Urine Neg (NEGATIVE); Opiate Scree,Urine Neg (NEGATIVE); Phencyclidine Screen, Urine Neg (NEGATIVE)
[2025-04-03 21:00] VITALS: BP 122/77; PULSE 92; RESP 20; TEMP 97.4; O2SAT 94
[2025-04-03] MEDS: METOPROLOL TARTRATE 25 MG TAB PO SCH (22:19)
[2025-04-03] MEDS: ATORVASTATIN 20 MG TAB PO SCH (22:20)
[2025-04-03] MEDS ORDERED: ENOXAPARIN SOD 150 MG/1 ML SYRINGE SC SCH (23:59)
[2025-04-04] VITALS (8 sets, daily range): BP systolic 100–132; BP diastolic 59–95; PULSE 64–130; RESP 17–22; TEMP 97.1–98.8; O2SAT 17–98
--- NOTE | 2025-04-04 00:51 | DVHHP2 ---
History of Present Illness Reason for Visit: Shortness for breath History of Present Illness 59-year-old female presents for evaluation of shortness for breath. Patient with a history of congestive heart failure reports a one-week history of worsening shortness for breath with mild exertion. She also reports substernal chest pressure and bilateral lower extremity swelling. Past Medical History Congestive heart failure, hypertension, ? lymphedema Past Surgical History Denies Family History Noncontributory Smoke: No ALCOHOL: none Drugs: None Lives: with Family Review of Systems Review of Systems Review of systems are currently negative otherwise addressed in HPI. Allergies: Coded Allergies: NO KNOWN ALLERGIES (Unverified , 02/11/18) Medications Current Medications Medications Dose Ordered Sig/Ani Route Start Time Stop Time Status Last Admin Dose Admin Aspirin 162 mg DAILY PO 04/03/25 10:00 04/03/25 13:03 162 MG Atorvastatin Calcium 10 mg HS PO 04/03/25 22:00 04/03/25 22:20 10 MG Ondansetron HCl 4 mg Q4HP PRN IV 04/03/25 05:30 Acetaminophen 650 mg Q6HP PRN PO 04/03/25 05:30 Nitroglycerin 0.4 mg Q5MINP PRN SL 04/03/25 05:30 Morphine Sulfate 2 mg Q30M PRN IV 04/03/25 05:30 Furosemide 40 mg BIDD IV 04/03/25 18:00 04/03/25 17:30 40 MG Metoprolol Tartrate 25 mg BID PO 04/03/25 22:00 04/03/25 22:19 25 MG Enoxaparin Sodium 150 mg Q12HR SC 04/04/25 03:00 Exam Vital Signs Vital Signs Date Time Temp Pulse Resp B/P (MAP) Pulse Ox O2 Delivery O2 Flow Rate FiO2 04/03/25 23:19 117 128/89 04/03/25 21:00 97.4 20 94 97.4 04/03/25 20:00 Nasal Cannula* 3 32 Exam Gen: 59-year-old female in mild distress, morbidly obese Skin: Warm, dry, normal color and texture, no rash. HEENT: Normocephalic atraumatic, mucous membranes moist and pink. Neck: Cervical and supraclavicular nodes normal without enlargement, trachea is midline, thyroid gland is normal without masses. Pulmonary: Clear to auscultation and percussion bilaterally. Cardiac: Regular rate and rhythm. No murmur Abdomen: Soft, nontender, nondistended, bowel sounds present all 4 quadrants, no guarding, no rigidity, no organomegaly. Extremities: No cyanosis, clubbing, plus three bilateral lower extremity swelling Neuro: Cranial nerves II through XII grossly intact, normal affect and speech, no focal motor deficits. Labs/Xrays ORDERING PHYSICIAN: MARY CARMEN STOVALL MD PROCEDURE(s): CXRP - CHEST PORTABLE REASON: SOB ORDER NUMBER(s): [id number], ACCESSION NUMBER(s): [id number] CHEST RADIOGRAPH Indication: SOB Technique: Single frontal view of the chest was obtained COMPARISON: None FINDINGS: Lines and Tubes: None Lungs: There is moderate diffuse increased prominence of the pulmonary vasculature. No definite evidence of consolidation. Small bilateral pleural effusions are not excluded. No pneumothorax. Cardiomediastinal contours: Cardiomegaly. Bones: Unremarkable IMPRESSION: 1. Cardiomegaly and diffuse increased prominence of the pulmonary vasculature. 2. Small bilateral pleural effusions are not excluded. Labs Test 04/03/25 13:46 04/03/25 03:10 04/03/25 03:00 04/03/25 02:56 Range/Units Magnesium Level 1.9 1.6-2.6 mg/dL Troponin I High Sensitivity 62 *H </=34 ng/L Hemoglobin A1c 5.3 <5.7 % A1C Free Thyroxine (T4) Calculated 1.37 0.89-1.76 ng/dL Free Triiodothyronine (T3) pg/mL 3.19 2.3-4.2 pg/mL Thyroid Stimulating Hormone (TSH) 7.75 H 0.55-4.78 uIU/mL Urine Color Yellow Yellow Urine Clarity Turbid H Clear Urine pH 5.0 5.0-9.0 Urine Specific [place] 1.033 1.001-1.035 Urine Protein 2+ H Negative Urine Ketones Trace Negative Urine Blood Negative Negative /uL Urine Nitrite Negative Negative Urine Bilirubin Negative Negative Urine Urobilinogen Normal Negative mg/dL Urine Leukocyte Esterase Negative Negative /uL Urine RBC None seen 0 - 4 /hpf Urine Microscopic WBC 1 0-5 /HPF Urine Squamous Epithelial Cells Few <5 /hpf Urine Calcium Oxalate Crystals Mod None Seen Urine Bacteria None seen None Seen /hpf Urine Mucus Few None Seen Urine Glucose Normal Normal mg/dL Urine Opiates Screen Neg NEGATIVE Urine Fentanyl Screen Neg NEGATIVE Urine Barbiturates Screen Neg NEGATIVE Urine Phencyclidine Screen Neg NEGATIVE Urine Amphetamines Screen Neg NEGATIVE Urine Benzodiazepines Screen Neg NEGATIVE Urine Cocaine Screen Neg NEGATIVE Urine Cannabinoids Screen Neg NEGATIVE Test 04/03/25 02:06 04/02/25 23:05 Range/Units Triglycerides Level 66 < 150 mg/dL Cholesterol Level 139 < 200 mg/dL LDL Cholesterol 75 < 100 mg/dL HDL Cholesterol 45 40-59 mg/dL White Blood Count 10.6 4.4-10.8 10^3/uL Red Blood Count 4.04 4.0-5.20 10^6/uL Hemoglobin 12.7 12.2-16.2 g/dL Hematocrit 38.6 36.0-46.0 % Mean Corpuscular Volume 95.3 80.0-100.0 fL Mean Corpuscular Hemoglobin 31.3 28.0-32.0 pg Mean Corpuscular Hemoglobin Concent 32.8 32.0-36.0 g/dL Red Cell Distribution Width 17.4 H 11.8-14.3 % Platelet Count 189 140-450 10^3/uL Mean Platelet Volume 10.7 6.9-10.8 fL Neutrophils (%) (Auto) 83.0 H 37.0-80.0 % Lymphocytes (%) (Auto) 11.1 10.0-50.0 % Monocytes (%) (Auto) 4.6 0.0-12.0 % Eosinophils (%) (Auto) 0.8 0.0-7.0 % Basophils (%) (Auto) 0.5 0.0-2.0 % Neutrophils # (Auto) 8.8 H 1.6-8.6 10 ^3/uL Lymphocytes # (Auto) 1.2 0.4-5.4 10 ^3/uL Monocytes # (Auto) 0.5 0-1.3 10 ^3/uL Eosinophils # (Auto) 0.1 0-0.8 10 ^3/uL Basophils # (Auto) 0 0-0.2 10 ^3/uL Nucleated Red Blood Cells 0.1 % Prothrombin Time 11.4 9.3-11.8 sec Prothrombin Time INR 1.08 0.9-1.15 Activated Partial Thromboplast Time 26.8 24.5-34.5 SEC D-Dimer, Quantitative 1.02 H 0.0-0.49 mg/L FEU Sodium Level 143 136-145 mmol/L Potassium Level 4.2 3.5-5.1 mmol/L Chloride Level 106 98-107 mmol/L Carbon Dioxide Level 28 20-31 mmol/L Anion Gap 9 5-15 Blood Urea Nitrogen 9 9-23 mg/dL Creatinine 0.78 0.550-1.02 mg/dL Glomerular Filtration Rate Calc 88 >90 mL/min BUN/Creatinine Ratio 11.5 10.0-20.0 Serum Glucose 112 H 74-106 mg/dL Calcium Level 10.1 8.7-10.4 mg/dL Total Bilirubin 1.2 H 0.2-1.0 mg/dL Aspartate Amino Transferase (AST) 32 13-40 U/L Alanine Aminotransferase (ALT) 27 7-40 U/L Alkaline Phosphatase 130 H 46-116 U/L B-Type Natriuretic Peptide 200.59 0-100 pg/mL Total Protein 7.3 5.7-8.2 g/dL Albumin 4.5 3.2-4.8 g/dL Assessment/Plan Assessment/Plan Assessment Acute on chronic congestive heart failure Elevated troponin, demand ischemia Hypertension Morbid obesity Noncompliant Plan Admit the patient to telemetry to the hospitalist Echocardiogram pending Resume home medications IV Lasix Continue treatment per orders Plan discussed with: Patient My Orders Orders - JOE KELLER M AGACNP Procedure Category Date Status Time Aspirin Tablet PHA 04/03/25 In Process 10:00 Atorvastatin (Lipitor) PHA 04/03/25 In Process 22:00 * Cardiology Consult CONS 04/03/25 Transmitted 05:21 Basic Metabolic Panel LAB 04/04/25 Logged 04:00 Admit ADMIT 04/03/25 Transmitted 05:21 Ondansetron Hcl PHA 04/03/25 In Process (Zofran) 05:30 Cardiac DIET 04/03/25 Transmitted Diet-2gna,Lofat,Lochol Breakfast Echo 2d Mode Cardiac US 04/03/25 Resulted DOP 05:21 Condition: Fair MARY ANN 04/03/25 In Process 05:21 Acetaminophen Tablet PHA 04/03/25 In Process (Tylenol Tablet) 05:30 Bedrest With Bathroom MARY ANN 04/03/25 In Process Privileg 05:21 Nitroglycerin [facility] 04/03/25 In Process Sublingual (Ntrostat 05:30 Morphine Sulfate PHA 04/03/25 In Process Injection 05:30 Stat Ekg For Chest [facility] 04/03/25 In Process Pain 05:21 Notify Md Of Changes [facility] 04/03/25 In Process From Base 05:21 Head End Desizing Machine Operator For [facility] 04/03/25 In Process 24 Hours 05:21 Emergency Dysrhythmia [facility] 04/03/25 In Process Protocol 05:21 Rhythm Strips Once [facility] 04/03/25 In Process Every Shift 05:21 Oxygen By Nasal RT 04/03/25 Transmitted Cannula 05:21 Pharmacy [facility] 04/03/25 In Process Clarification: 23:59 Date of Service: April 03, 2025 Billing Provider: JOE KELLER Common Visit Codes: [id number] INP/OBS CARE (HIGH) JOE KELLER April 04, 2025 00:51
[2025-04-04] MEDS: ENOXAPARIN SOD 150 MG/1 ML SYRINGE SC SCH (02:22)
[2025-04-04 06:47] LABS: Chloride 105 mmol/L (98-107); Sodium 143 mmol/L (136-145)
[2025-04-04 06:48] LABS: Anion Gap 11 (5-15); Calcium 9.6 mg/dL (8.7-10.4); Carbon Dioxide 27 mmol/L (20-31); Potassium 3.3 mmol/L (3.5-5.1)
[2025-04-04 06:53] LABS: BUN/Creatinine Ratio 13.5 (10.0-20.0); Blood Urea Nitrogen 10 mg/dL (9-23)
[2025-04-04 07:04] LABS: Glucose 118 mg/dL (74-106)
[2025-04-04] MEDS: POTASSIUM EFFERVESENT TAB 25 MEQ PO ONE (09:26)
--- NOTE | 2025-04-04 09:41 | DVHPN2 ---
Progress Note Date Seen: April 04, 2025 Resident Creating Document: THELMA CHUNG RESIDENT Medical Necessity Reason Pt with a Central, PICC or Fol: No Subjective Review of Systems History of Present Illness 59 year old female with past medical history of Paroxysmal Afib 2 years ago where she was prescribed metoprolol, which patient stopped taking, presented with complaints of bilateral pedal edema associated with shortness of breath. pt mentioned that she had pedal edema for last 4 years, but for last 3 days, she had edema on thighs, which made her come to the ER. She also mentioned she had redness in the lower right leg for last 4 years. She mentioned she had shortness of breath for last 3 weeks and more worse for last 3 days, correlating with NHYA class III/IV. Patient mentioned that she had an echo last year which was within normal limit, never had any stress test or LHC. On presenting to the ER, she was found to be in Afib, was started on metoprolol which she refused, started on IV lasix. Cardiology was consulted for CHF. She is on 2L O2, still in Afib. PMH Afib, ?CHF PSH denied Social history denied smoking, alcohol, marijuana and any other drug intake Family history denied any history of cardiac comorbidities in family members Interval Events 04/04/25 -pt is mentioning mild improvement in her symptoms of shortness of breath and pedal edema -had mild bleeding from gums today morning -pt is refusing Lovenox and GDMT despite explaining the risks -pt is refusing LHC for ischaemic workup after understanding the risks I/O with a net of -4.4 lt in last 24 hrs Objective vital signs Vital Sign Date Time Temp Pulse Resp B/P (MAP) Pulse Ox O2 Delivery O2 Flow Rate FiO2 04/04/25 05:56 110/71 04/04/25 05:00 98.1 79 22 94 98.1 04/03/25 20:00 Nasal Cannula* 3 32 Total Intake and Output 04/03/25 04/03/25 04/04/25 15:00 23:00 07:00 Intake Total 600 ml Output Total 1950 ml 1000 ml 2100 ml Balance -1950 ml -1000 ml -1500 ml medications Current Medications Medications Dose Ordered Sig/Ani Route Start Time Stop Time Status Last Admin Dose Admin Aspirin 162 mg DAILY PO 04/03/25 10:00 04/03/25 13:03 162 MG Atorvastatin Calcium 10 mg HS PO 04/03/25 22:00 04/03/25 22:20 10 MG Ondansetron HCl 4 mg Q4HP PRN IV 04/03/25 05:30 Acetaminophen 650 mg Q6HP PRN PO 04/03/25 05:30 Nitroglycerin 0.4 mg Q5MINP PRN SL 04/03/25 05:30 Morphine Sulfate 2 mg Q30M PRN IV 04/03/25 05:30 Furosemide 40 mg BIDD IV 04/03/25 18:00 04/04/25 05:56 40 MG Metoprolol Tartrate 25 mg BID PO 04/03/25 22:00 04/03/25 22:19 25 MG Enoxaparin Sodium 150 mg Q12HR SC 04/04/25 03:00 04/04/25 02:22 150 MG Examination Examination General Appearance: Alert, Oriented X3, Cooperative, No acute distress HEENT: EOMI Respiratory: Clear to auscultation, Normal air movement Cardiovascular: Regular rate, Normal S1, Normal S2 Abdominal: Normal bowel sounds Extremities: Bilateral Pedal edema, No cyanosis, No edema, Normal pulses, No tenderness/swelling Skin: No rashes, No breakdown Neuro: Normal gait, Normal speech, Strength at 5/5 X4 ext, Normal tone, Sensation intact, Cranial nerves 3-12 NL, Reflexes 2+ Psych/Mental Status: Mental status NL, Mood NL laboratory and microbiology Laboratory Tests 04/04/25 05:27 04/02/25 23:05 Test 04/04/25 05:27 Range/Units Serum Glucose 118 H 74-106 mg/dL Labs and/or images reviewed: Labs reviewed by me, Image(s) reviewed by me Problem List/Assessment/Plan Problem List/Assessment/Plan Assessment/Plan #acute hypoxic Resp failure likely due to CHF #Acute HFrEF ?unknown etiology as of now ?Ischaemic etiology #Biventricular failure -EF 20% on echo #Paroxysmal Afib ( was not on anticoagulation before admission ) -[id number] 2 -HASBLED 0 #Non-sustained VTach -currently on Beta-blockers #Elevated Troponin NSTEMI Type II -likely due to CHF and Afib Plan -continue with diuretics 40mg BID -ekg, trops, bnp, echo -TSH, HbA1c, lipid panel -lower extremity Doppler study -free t3/t4, -k>4, Mg>2 -PT/INR -therapeutic Lovenox 1mg/kg BID with switching to DOACs -Metoprolol tartrate 25mg BID for Afib with target HR <110, IV metroprolol PRN considering hemodynamics we recommend starting GDMT for CHF and LHC for ischaemic workup -pt is refusing Lovenox/DOACs and GDMT despite explaining the risks -pt is refusing LHC for ischaemic workup after understanding the risks pt was explained in details about the risk of not taking GDMT including worsening of CHF, arrythmias and SCD, pt mentioned she does not want to start any new medication now and will wait for a 2nd opinion. We will sign off from this case as of now , kindly reconsult if needed. Case discussion with Dr Richardson. Plan discussed with: Patient, Other My Orders My Orders Orders - THELMA CHUNG Procedure Category Date Status Time * Wound Consult CONS 04/03/25 Transmitted Bilat Lower Dvt US 04/03/25 Resulted 13:09 Metoprolol Tartrate PHA 04/03/25 In Process Tablet (Lopressor Ta 22:00 Furosemide Injection PHA 04/03/25 In Process (Lasix Injection) 18:00 Enoxaparin Sodium PHA 04/04/25 In Process (Lovenox) 03:00 THELMA CHUNG RESIDENT April 04, 2025 09:41
--- NOTE | 2025-04-04 13:22 | DVHPN2 ---
Subjective Continues to complain of shortness of breath. Reviewed: Care Plan, H&P, Labs Changes from previous H/P or p: No Changes General: Per HPI Objective Vitals Vital Signs Date Time Temp Pulse Resp B/P (MAP) Pulse Ox O2 Delivery O2 Flow Rate FiO2 04/04/25 09:35 112 115/81 04/04/25 09:00 97.1 18 97 97.1 04/04/25 08:00 Nasal Cannula* 3 32 Intake/Output Intake and Output 04/04/25 07:00 Intake Total 600 ml Output Total 5050 ml Balance -4450 ml Intake Oral 600 ml Output Urine Total 5050 ml General Appearance: Alert, Oriented X3, Cooperative, mild distress, Other (Obese) HEENT: Atraumatic, PERRLA Lungs: Clear to auscultation, Normal air movement Cardiovascular: Normal S1, Normal S2 Abdomen: Normal bowel sounds, Soft, No tenderness Musculoskeletal: Normal sensory function, Normal motor function Skin: Dry, Intact Psych/Mental Status: Mental status NL, Mood NL Medications Current Medications Medications Dose Ordered Sig/Ani Route Start Time Stop Time Status Last Admin Dose Admin Aspirin 162 mg DAILY PO 04/03/25 10:00 04/04/25 09:30 162 MG Atorvastatin Calcium 10 mg HS PO 04/03/25 22:00 04/03/25 22:20 10 MG Ondansetron HCl 4 mg Q4HP PRN IV 04/03/25 05:30 Acetaminophen 650 mg Q6HP PRN PO 04/03/25 05:30 Nitroglycerin 0.4 mg Q5MINP PRN SL 04/03/25 05:30 Morphine Sulfate 2 mg Q30M PRN IV 04/03/25 05:30 Furosemide 40 mg BIDD IV 04/03/25 18:00 04/04/25 05:56 40 MG Metoprolol Tartrate 25 mg BID PO 04/03/25 22:00 04/04/25 09:35 25 MG Enoxaparin Sodium 150 mg Q12HR SC 04/04/25 03:00 04/04/25 02:22 150 MG Laboratory Results Laboratory Tests 04/02/25 23:05 04/04/25 05:27 Chemistry Test 04/03/25 13:46 04/04/25 05:27 Magnesium Level 1.9 mg/dL (1.6-2.6) Calcium Level 9.6 mg/dL (8.7-10.4) Urinalysis Test 04/03/25 02:56 Urine Color Yellow (Yellow) Urine Clarity Turbid (Clear) H Urine pH 5.0 (5.0-9.0) Urine Specific [place] 1.033 (1.001-1.035) Urine Protein 2+ (Negative) H Urine Ketones Trace (Negative) Urine Blood Negative /uL (Negative) Urine Nitrite Negative (Negative) Urine Bilirubin Negative (Negative) Urine Urobilinogen Normal mg/dL (Negative) Urine Leukocyte Esterase Negative /uL (Negative) Urine RBC None seen /hpf (0 - 4) Urine Microscopic WBC 1 /HPF (0-5) Urine Squamous Epithelial Cells Few /hpf (<5) Urine Calcium Oxalate Crystals Mod (None Seen) Urine Bacteria None seen /hpf (None Seen) Urine Mucus Few (None Seen) Urine Glucose Normal mg/dL (Normal) Labs and/or images reviewed: Labs reviewed by me, Image(s) reviewed by me Assessment/Plan Assessment/Plan Impression: -A.fib with RVR -Acute on Chronic Systolic Heart Failure -morbid obesity -bilateral lower extremity swelling, DVT ruled out -acute on chronic hypoxic respiratory failure -NSTEMI type 2 secondary to AFib with RVR and diastolic/systolic heart failure -hypothyroidism -Nonsustained ventricular tachycardia Plan: Events: Patient reports improved movement with the lower extremities as well as swelling to her right lower extremity. Patient noted to have nonsustained VT this a.m., not reported service cell for Cardiology. Discussed findings echocardiogram and EKG findings was plan of care with patient who was still abstinent to full treatment. Currently refusing ELADIO, left heart catheterization. -cardiology consultation: Plan of care discussed with Cardiology team -continue rate control: Increase metoprolol -echocardiogram, pending. Preliminary results with noted decreased ejection fraction -continue full-dose anticoagulation -thyroid supplementation -O2 supplementation to keep saturation greater than 92% -aggressive IV diuresis -start guideline directed medical therapy for heart failure -reassess for transfer stability to [facility] in a.m.. Currently unstable given patient continues to be in AFib with RVR and dyspneic. Critical care time spent with patient discussing and formulating plan of care: 40 minutes. This does not include time spent performing procedures. This medical document was created using an electronic medical record system with [employer] system. Although this document has been carefully reviewed, there may still be some phonetic and typographical errors. These areas are purely typographical due to imperfections of the software programs, and do not reflect any compromise in the patient's medical care. Plan discussed with: Patient, Other (Rn) My Orders Orders - LUDY JOSE NP Procedure Category Date Status Time * Shock Absorber Installer CONS 04/03/25 Transmitted Consult * Shock Absorber Installer CONS 04/04/25 Transmitted Consult * Shock Absorber Installer CONS 04/04/25 Transmitted Consult Vitamin B1 (Thiamine) LAB 04/05/25 Verified 04:00 Basic Metabolic Panel LAB 04/05/25 Verified 04:00 Magnesium LAB 04/05/25 Verified 04:00 Complete Blood Count LAB 04/05/25 Verified 04:00 Date of Service: April 04, 2025 Billing Provider: LUDY JOSE NP Common Visit Codes: [id number] CARE 30-74 MIN LUDY JOSE NP April 04, 2025 13:21
[2025-04-04] MEDS: DOCUSATE SOD 100 MG CAP PO SCH (16:39)
[2025-04-04] MEDS: METOPROLOL TARTRATE 25 MG TAB PO SCH (21:42)
[2025-04-05] VITALS (8 sets, daily range): BP systolic 105–131; BP diastolic 64–98; PULSE 73–126; RESP 17–21; TEMP 97–98.6; O2SAT 96–99
[2025-04-05 07:05] LABS: Anion Gap 9 (5-15); Calcium 9.4 mg/dL (8.7-10.4)
[2025-04-05 07:08] LABS: Basophils # (auto) 0 10 ^3/uL (0-0.2); Basophils % (auto) 0.4 % (0.0-2.0); Eosinophils # (auto) 0.1 10 ^3/uL (0-0.8); Eosinophils % (auto) 1.1 % (0.0-7.0); Lymphocytes # (auto) 1.3 10 ^3/uL (0.4-5.4); Lymphocytes % (auto) 13.4 % (10.0-50.0); Mean Corpuscular Hemoglobin 31.1 pg (28.0-32.0); Mean Corpuscular Hgb Conc. 32.5 g/dL (32.0-36.0); Mean Corpuscular Volume 95.5 fL (80.0-100.0); Monocytes # (auto) 0.4 10 ^3/uL (0-1.3); Monocytes % (auto) 4.6 % (0.0-12.0); Neutrophils # (auto) 7.7 10 ^3/uL (1.6-8.6); Neutrophils % (auto) 80.5 % (37.0-80.0); Platelet Count (auto) 166 10^3/uL (140-450); Red Blood Cells 3.88 10^6/uL (4.0-5.20); Red Cell Distribution Width 16.9 % (11.8-14.3); White Blood Cell 9.5 10^3/uL (4.4-10.8)
[2025-04-05 07:11] LABS: BUN/Creatinine Ratio 14.9 (10.0-20.0); Blood Urea Nitrogen 11 mg/dL (9-23); Glucose 106 mg/dL (74-106)
[2025-04-05 07:12] LABS: Magnesium 1.7 mg/dL (1.6-2.6)
[2025-04-05 07:14] LABS: Carbon Dioxide 32 mmol/L (20-31); Chloride 101 mmol/L (98-107); Potassium 3.3 mmol/L (3.5-5.1); Sodium 142 mmol/L (136-145)
--- NOTE | 2025-04-05 13:05 | DVHPN2 ---
Subjective Patient reports that her swelling and shortness of breath has improved. Reviewed: Care Plan, H&P, Labs Changes from previous H/P or p: No Changes General: Per HPI Objective Vitals Vital Signs Date Time Temp Pulse Resp B/P (MAP) Pulse Ox O2 Delivery O2 Flow Rate FiO2 04/05/25 10:45 120 121/66 04/05/25 08:31 97.6 21 99 97.6 04/05/25 08:00 Nasal Cannula* 3 32 Intake/Output Intake and Output 04/05/25 07:00 Intake Total 1715 ml Output Total 4500 ml Balance -2785 ml Intake Oral 1715 ml Output Urine Total 4500 ml # Bowel Movements 2 General Appearance: Alert, Oriented X3, Cooperative, mild distress, Other (Obese) HEENT: Atraumatic, PERRLA Lungs: Clear to auscultation, Normal air movement Cardiovascular: Normal S1, Normal S2 Abdomen: Normal bowel sounds, Soft, No tenderness Musculoskeletal: Normal sensory function, Normal motor function Skin: Dry, Intact Psych/Mental Status: Mental status NL, Mood NL Medications Current Medications Medications Dose Ordered Sig/Ani Route Start Time Stop Time Status Last Admin Dose Admin Aspirin 162 mg DAILY PO 04/03/25 10:00 04/05/25 09:37 162 MG Atorvastatin Calcium 10 mg HS PO 04/03/25 22:00 04/03/25 22:20 10 MG Ondansetron HCl 4 mg Q4HP PRN IV 04/03/25 05:30 Acetaminophen 650 mg Q6HP PRN PO 04/03/25 05:30 Nitroglycerin 0.4 mg Q5MINP PRN SL 04/03/25 05:30 Morphine Sulfate 2 mg Q30M PRN IV 04/03/25 05:30 Furosemide 40 mg BIDD IV 04/03/25 18:00 04/05/25 06:44 40 MG Enoxaparin Sodium 150 mg Q12HR SC 04/04/25 03:00 04/04/25 02:22 150 MG Metoprolol Tartrate 50 mg BID PO 04/04/25 22:00 04/05/25 09:36 50 MG Docusate Sodium 100 mg BID PO 04/04/25 16:00 04/04/25 16:39 100 MG Potassium Bicarbonate 50 meq DAILY PO 04/05/25 13:00 Laboratory Results Laboratory Tests 04/05/25 05:57 Chemistry Test 04/05/25 05:57 Calcium Level 9.4 mg/dL (8.7-10.4) Magnesium Level 1.7 mg/dL (1.6-2.6) Urinalysis Test 04/03/25 02:56 Urine Color Yellow (Yellow) Urine Clarity Turbid (Clear) H Urine pH 5.0 (5.0-9.0) Urine Specific [place] 1.033 (1.001-1.035) Urine Protein 2+ (Negative) H Urine Ketones Trace (Negative) Urine Blood Negative /uL (Negative) Urine Nitrite Negative (Negative) Urine Bilirubin Negative (Negative) Urine Urobilinogen Normal mg/dL (Negative) Urine Leukocyte Esterase Negative /uL (Negative) Urine RBC None seen /hpf (0 - 4) Urine Microscopic WBC 1 /HPF (0-5) Urine Squamous Epithelial Cells Few /hpf (<5) Urine Calcium Oxalate Crystals Mod (None Seen) Urine Bacteria None seen /hpf (None Seen) Urine Mucus Few (None Seen) Urine Glucose Normal mg/dL (Normal) Labs and/or images reviewed: Labs reviewed by me, Image(s) reviewed by me Assessment/Plan Assessment/Plan Impression: -A.fib with RVR -Acute on Chronic Systolic Heart Failure -morbid obesity -bilateral lower extremity swelling, DVT ruled out -acute on chronic hypoxic respiratory failure -NSTEMI type 2 secondary to AFib with RVR and diastolic/systolic heart failure -hypothyroidism -Nonsustained ventricular tachycardia Plan: Events: Patient continues to refuse anticoagulation despite being explained the risk for thrombus with ejection fraction 20%. Patient also refusing further guideline directed medical therapy. Heart rate has improved despite having bursts of RVR. Patient requesting 2nd opinion. We will proceed with transferred to [facility] -cardiology consultation: Plan of care discussed with Cardiology team -continue rate control: Increase metoprolol -echocardiogram, pending. Preliminary results with noted decreased ejection fraction -continue full-dose anticoagulation -thyroid supplementation -O2 supplementation to keep saturation greater than 92% -aggressive IV diuresis -start guideline directed medical therapy for heart failure -stable to transfer to [facility] Critical care time spent with patient discussing and formulating plan of care: 40 minutes. This does not include time spent performing procedures. This medical document was created using an electronic medical record system with [employer] system. Although this document has been carefully reviewed, there may still be some phonetic and typographical errors. These areas are purely typographical due to imperfections of the software programs, and do not reflect any compromise in the patient's medical care. Plan discussed with: Patient, Other (RN) My Orders Orders - LUDY JOSE NP Procedure Category Date Status Time Vitamin B1 (Thiamine) LAB 04/05/25 In Process 04:00 Metoprolol Tartrate PHA 04/04/25 In Process Tablet (Lopressor Ta 22:00 Docusate Sodium PHA 04/04/25 In Process Capsule (Colace 16:00 Apply Barrier Cream MARY ANN 04/04/25 In Process 11:35 Potassium Effervesent PHA 04/05/25 In Process Tab (Klor-Con/Ef) 13:00 * Wellness Consultant CONS 04/05/25 Transmitted Consult Ibuprofen Tablet PHA 04/05/25 Verified (Motrin Tablet) 13:00 Date of Service: April 05, 2025 Billing Provider: LUDY JOSE NP Common Visit Codes: [id number] INP/OBS CARE(HIGH) LUDY JOSE NP April 05, 2025 13:05
[2025-04-05] MEDS ORDERED: ACETAMINOPHEN 325 MG TAB PO PRN (13:30)
[2025-04-05] MEDS: IBUPROFEN 400 MG TAB PO PRN (16:00)
[2025-04-05] MEDS: POTASSIUM EFFERVESENT TAB 25 MEQ PO SCH (16:00)
[2025-04-06] VITALS (8 sets, daily range): BP systolic 112–127; BP diastolic 70–90; PULSE 92–161; RESP 17–18; TEMP 97.2–98.1; O2SAT 97–99
--- NOTE | 2025-04-06 06:19 | ECG ---
[facility] Test Date: 2025-04-03 Test Time: 14:37:10 Pat Name: KELLIE LEDEZMA Department: ED Room: [facility]0T A Gender: F Corpsman: [id number] : 1965 Requested By: MARY CARMEN STOVALL Order Number: [id number] Reading MD: Derian Richardson Measurements Intervals [place] Rate: 129 P: 0 CT: 0 QRS: 44 QRSD: 96 T: 87 QT: 316 QTc: 463 Interpretive Statements Atrial fibrillation Nonspecific T abnormalities, lateral leads Electronically Signed On 04-06-2025 20:57:58 PDT by Derian Richardson Please click the below link to view image of tracing.
--- NOTE | 2025-04-06 06:19 | ECG ---
[facility] Test Date: 2025-04-03 Test Time: 12:16:46 Pat Name: KELLIE LEDEZMA Department: ED Room: [facility]0T A Gender: F Ink Maker: [id number] : 1965 Requested By: MARY CARMEN STOVALL Order Number: [id number] Reading MD: Derian Richardson Measurements Intervals [place] Rate: 100 P: 0 MO: 0 QRS: 47 QRSD: 98 T: 68 QT: 347 QTc: 448 Interpretive Statements Incomplete analysis due to missing data in precordial lead(s) Atrial fibrillation Ventricular premature complex Missing lead(s): V1,V2 Electronically Signed On 04-06-2025 20:57:53 PDT by Derian Richardson Please click the below link to view image of tracing.
--- NOTE | 2025-04-06 14:48 | DVHPN2 ---
Subjective Same Reviewed: Care Plan, H&P, Labs, Medications, Previous Orders, Radiology Changes from previous H/P or p: No Changes General: Per HPI Objective Vitals Vital Signs Date Time Temp Pulse Resp B/P (MAP) Pulse Ox O2 Delivery O2 Flow Rate FiO2 04/06/25 13:00 98.0 98 18 127/90 (102) 98 98.0 04/06/25 08:00 Nasal Cannula* 3 32 Intake/Output Intake and Output 04/06/25 07:00 Intake Total 1525 ml Output Total 9600 ml Balance -8075 ml Intake Oral 1525 ml Output Urine Total 9600 ml # Bowel Movements 2 General Appearance: Alert, Oriented X3 HEENT: Atraumatic Lungs: Clear to auscultation Cardiovascular: Regular rate Abdomen: Normal bowel sounds Medications Current Medications Medications Dose Ordered Sig/Ani Route Start Time Stop Time Status Last Admin Dose Admin Aspirin 162 mg DAILY PO 04/03/25 10:00 04/06/25 10:50 162 MG Atorvastatin Calcium 10 mg HS PO 04/03/25 22:00 04/03/25 22:20 10 MG Ondansetron HCl 4 mg Q4HP PRN IV 04/03/25 05:30 Nitroglycerin 0.4 mg Q5MINP PRN SL 04/03/25 05:30 Morphine Sulfate 2 mg Q30M PRN IV 04/03/25 05:30 Furosemide 40 mg BIDD IV 04/03/25 18:00 04/06/25 06:04 40 MG Enoxaparin Sodium 150 mg Q12HR SC 04/04/25 03:00 04/04/25 02:22 150 MG Metoprolol Tartrate 50 mg BID PO 04/04/25 22:00 04/06/25 10:50 50 MG Docusate Sodium 100 mg BID PO 04/04/25 16:00 04/04/25 16:39 100 MG Potassium Bicarbonate 50 meq DAILY PO 04/05/25 13:00 04/05/25 16:00 50 MEQ Ibuprofen 200 mg Q8HP PRN PO 04/05/25 13:00 04/06/25 10:51 200 MG Acetaminophen 650 mg Q6HP PRN PO 04/05/25 13:30 Laboratory Results Laboratory Tests 04/05/25 05:57 Urinalysis Test 04/03/25 02:56 Urine Color Yellow (Yellow) Urine Clarity Turbid (Clear) H Urine pH 5.0 (5.0-9.0) Urine Specific [place] 1.033 (1.001-1.035) Urine Protein 2+ (Negative) H Urine Ketones Trace (Negative) Urine Blood Negative /uL (Negative) Urine Nitrite Negative (Negative) Urine Bilirubin Negative (Negative) Urine Urobilinogen Normal mg/dL (Negative) Urine Leukocyte Esterase Negative /uL (Negative) Urine RBC None seen /hpf (0 - 4) Urine Microscopic WBC 1 /HPF (0-5) Urine Squamous Epithelial Cells Few /hpf (<5) Urine Calcium Oxalate Crystals Mod (None Seen) Urine Bacteria None seen /hpf (None Seen) Urine Mucus Few (None Seen) Urine Glucose Normal mg/dL (Normal) Assessment/Plan Assessment/Plan Acute on chronic heart failure/systolic dysfunction AFib with RVR Non-STEMI Morbid obesity Bilateral lower extremity edema Nonsustained V-tach Hypothyroidism Hypokalemia Patient continues to refuse anticoagulation Plan: Continue current plan of care. Repeat labs. Patient is being transferred to [place]. Awaiting bed Plan discussed with: Patient Date of Service: April 06, 2025 Billing Provider: POLO SNYDER MD Common Visit Codes: [id number] INP/OBS CARE(HIGH) POLO SNYDER MD April 06, 2025 14:48
[2025-04-07] VITALS (8 sets, daily range): BP systolic 98–149; BP diastolic 64–93; PULSE 60–126; RESP 16–19; TEMP 97.2–98.7; O2SAT 95–100
[2025-04-07 08:19] LABS: Basophils # (auto) 0.1 10 ^3/uL (0-0.2); Basophils % (auto) 0.7 % (0.0-2.0); Eosinophils # (auto) 0.2 10 ^3/uL (0-0.8); Eosinophils % (auto) 2.2 % (0.0-7.0); Hematocrit 37.8 % (36.0-46.0); Hemoglobin 12.5 g/dL (12.2-16.2); Lymphocytes # (auto) 1.3 10 ^3/uL (0.4-5.4); Lymphocytes % (auto) 13.4 % (10.0-50.0); Mean Corpuscular Hemoglobin 31.4 pg (28.0-32.0); Monocytes # (auto) 0.5 10 ^3/uL (0-1.3); Monocytes % (auto) 4.8 % (0.0-12.0); Neutrophils # (auto) 7.8 10 ^3/uL (1.6-8.6); Neutrophils % (auto) 78.9 % (37.0-80.0); Platelet Count (auto) 151 10^3/uL (140-450); Red Blood Cells 3.98 10^6/uL (4.0-5.20); Red Cell Distribution Width 16.6 % (11.8-14.3)
[2025-04-07 08:33] LABS: Alanine Aminotransferase 31 U/L (7-40); Anion Gap 9 (5-15); BUN/Creatinine Ratio 15.5 (10.0-20.0); Blood Urea Nitrogen 11 mg/dL (9-23); Calcium 10.1 mg/dL (8.7-10.4); Chloride 100 mmol/L (98-107); Sodium 142 mmol/L (136-145)
[2025-04-07 08:35] LABS: Albumin 4.2 g/dL (3.2-4.8); Aspartate Aminotransferase 32 U/L (13-40)
[2025-04-07 08:39] LABS: Alkaline Phosphatase 117 U/L (46-116); Bilirubin, Total 1.5 mg/dL (0.2-1.0); Carbon Dioxide 33 mmol/L (20-31); Glucose 115 mg/dL (74-106); Potassium 3.4 mmol/L (3.5-5.1)
--- NOTE | 2025-04-07 16:16 | DVHPN2 ---
Subjective SITTING AT BEDSIDE. Reviewed: Care Plan, H&P, Labs, Medications, Previous Orders, Radiology Changes from previous H/P or p: No Changes General: Per HPI Objective Vitals Vital Signs Date Time Temp Pulse Resp B/P (MAP) Pulse Ox O2 Delivery O2 Flow Rate FiO2 04/07/25 13:00 98.1 104 19 98/77 (84) 96 98.1 04/07/25 08:00 Nasal Cannula* 3 32 Intake/Output Intake and Output 04/07/25 07:00 Intake Total 1000 ml Output Total 2625 ml Balance -1625 ml Intake Oral 1000 ml Output Urine Total 2625 ml General Appearance: Alert, Oriented X3 HEENT: Atraumatic Lungs: Clear to auscultation Cardiovascular: Other (TACHYCARDIA) Abdomen: Normal bowel sounds Medications Current Medications Medications Dose Ordered Sig/Ani Route Start Time Stop Time Status Last Admin Dose Admin Aspirin 162 mg DAILY PO 04/03/25 10:00 04/07/25 10:03 162 MG Atorvastatin Calcium 10 mg HS PO 04/03/25 22:00 04/03/25 22:20 10 MG Ondansetron HCl 4 mg Q4HP PRN IV 04/03/25 05:30 Nitroglycerin 0.4 mg Q5MINP PRN SL 04/03/25 05:30 Morphine Sulfate 2 mg Q30M PRN IV 04/03/25 05:30 Furosemide 40 mg BIDD IV 04/03/25 18:00 04/07/25 06:14 40 MG Enoxaparin Sodium 150 mg Q12HR SC 04/04/25 03:00 04/04/25 02:22 150 MG Metoprolol Tartrate 50 mg BID PO 04/04/25 22:00 04/07/25 10:04 50 MG Docusate Sodium 100 mg BID PO 04/04/25 16:00 04/04/25 16:39 100 MG Potassium Bicarbonate 50 meq DAILY PO 04/05/25 13:00 04/07/25 10:05 50 MEQ Ibuprofen 200 mg Q8HP PRN PO 04/05/25 13:00 04/07/25 11:17 200 MG Acetaminophen 650 mg Q6HP PRN PO 04/05/25 13:30 Amiodarone HCl 400 mg Q12HR PO 04/07/25 22:00 Laboratory Results Laboratory Tests 04/07/25 07:59 Chemistry Test 04/07/25 07:59 Albumin 4.2 g/dL (3.2-4.8) Calcium Level 10.1 mg/dL (8.7-10.4) Total Protein 7.0 g/dL (5.7-8.2) Cardiac Markers Test 04/07/25 07:59 B-Type Natriuretic Peptide 247.32 pg/mL (0-100) LFT Test 04/07/25 07:59 Alanine Aminotransferase (ALT) 31 U/L (7-40) Alkaline Phosphatase 117 U/L (46-116) H Aspartate Amino Transferase (AST) 32 U/L (13-40) Total Bilirubin 1.5 mg/dL (0.2-1.0) H Urinalysis Test 04/03/25 02:56 Urine Color Yellow (Yellow) Urine Clarity Turbid (Clear) H Urine pH 5.0 (5.0-9.0) Urine Specific [place] 1.033 (1.001-1.035) Urine Protein 2+ (Negative) H Urine Ketones Trace (Negative) Urine Blood Negative /uL (Negative) Urine Nitrite Negative (Negative) Urine Bilirubin Negative (Negative) Urine Urobilinogen Normal mg/dL (Negative) Urine Leukocyte Esterase Negative /uL (Negative) Urine RBC None seen /hpf (0 - 4) Urine Microscopic WBC 1 /HPF (0-5) Urine Squamous Epithelial Cells Few /hpf (<5) Urine Calcium Oxalate Crystals Mod (None Seen) Urine Bacteria None seen /hpf (None Seen) Urine Mucus Few (None Seen) Urine Glucose Normal mg/dL (Normal) Assessment/Plan Assessment/Plan Acute on chronic heart failure/systolic dysfunction AFib with RVR Non-STEMI Morbid obesity Bilateral lower extremity edema Nonsustained V-tach Hypothyroidism Hypokalemia Patient continues to refuse anticoagulation Plan: WE WILL START AMIODARONE. PATIENT WAS RELUCTANT TO TAKE THE AMIODARONE BUT THEN SHE AGREED. PATIENT WAS ARGUING THAT HER HEART SHE WILL BE 1ST BECAUSE SHE HAS BIG/OBESE. PATIENT STILL REFUSED TO TAKE ANTICOAGULATION. REPLACE POTASSIUM AWAITING TRANSFER TO [facility] ONCE HEART RATE BETTER CONTROLLED Plan discussed with: Patient My Orders Orders - POLO SNYDER MD Procedure Category Date Status Time Amiodarone Tablet PHA 04/07/25 In Process (Cordarone Tablet) 22:00 Date of Service: April 07, 2025 Billing Provider: POLO SNYDER MD Common Visit Codes: [id number] INP/OBS CARE(HIGH) POLO SNYDER MD April 07, 2025 16:16
[2025-04-07] MEDS: POTASSIUM EFFERVESENT TAB 25 MEQ PO ONE (18:07)
[2025-04-07] MEDS: AMIODARONE HCL 200 MG TAB PO SCH (21:53)
[2025-04-08 01:00] VITALS: BP 102/71; PULSE 102; RESP 18; TEMP 98.7; O2SAT 96
[2025-04-08 05:00] VITALS: BP 108/81; PULSE 86; RESP 18; O2SAT 98
[2025-04-08 08:00] VITALS: PULSE 101; RESP 19
[2025-04-08 09:00] VITALS: BP 116/73; PULSE 85; RESP 21; TEMP 97.9; O2SAT 91
[2025-04-08] MEDS ORDERED: METOPROLOL TARTRATE 1MG/1ML-5ML VIAL IV PRN (10:15)
--- NOTE | 2025-04-08 10:24 | DVHDS2 ---
Discharge Summary Date of Admission April 03, 2025 at 05:21 Date of Discharge: April 05, 2025 Admitting Diagnosis Acute on chronic congestive heart failure Labs/Diagnostic Data: Laboratory Results Test 04/07/25 07:59 04/05/25 05:57 04/03/25 13:46 04/03/25 03:10 White Blood Count 10.0 10^3/uL (4.4-10.8) Red Blood Count 3.98 10^6/uL (4.0-5.20) Hemoglobin 12.5 g/dL (12.2-16.2) Hematocrit 37.8 % (36.0-46.0) Mean Corpuscular Volume 95.0 fL (80.0-100.0) Mean Corpuscular Hemoglobin 31.4 pg (28.0-32.0) Mean Corpuscular Hemoglobin Concent 33.0 g/dL (32.0-36.0) Red Cell Distribution Width 16.6 % (11.8-14.3) Platelet Count 151 10^3/uL (140-450) Mean Platelet Volume 10.9 fL (6.9-10.8) Neutrophils (%) (Auto) 78.9 % (37.0-80.0) Lymphocytes (%) (Auto) 13.4 % (10.0-50.0) Monocytes (%) (Auto) 4.8 % (0.0-12.0) Eosinophils (%) (Auto) 2.2 % (0.0-7.0) Basophils (%) (Auto) 0.7 % (0.0-2.0) Neutrophils # (Auto) 7.8 10 ^3/uL (1.6-8.6) Lymphocytes # (Auto) 1.3 10 ^3/uL (0.4-5.4) Monocytes # (Auto) 0.5 10 ^3/uL (0-1.3) Eosinophils # (Auto) 0.2 10 ^3/uL (0-0.8) Basophils # (Auto) 0.1 10 ^3/uL (0-0.2) Nucleated Red Blood Cells 0.0 % Sodium Level 142 mmol/L (136-145) Potassium Level 3.4 mmol/L (3.5-5.1) Chloride Level 100 mmol/L (98-107) Carbon Dioxide Level 33 mmol/L (20-31) Anion Gap 9 (5-15) Blood Urea Nitrogen 11 mg/dL (9-23) Creatinine 0.71 mg/dL (0.550-1.02) Glomerular Filtration Rate Calc 98 mL/min (>90) BUN/Creatinine Ratio 15.5 (10.0-20.0) Serum Glucose 115 mg/dL (74-106) Calcium Level 10.1 mg/dL (8.7-10.4) Total Bilirubin 1.5 mg/dL (0.2-1.0) Aspartate Amino Transferase (AST) 32 U/L (13-40) Alanine Aminotransferase (ALT) 31 U/L (7-40) Alkaline Phosphatase 117 U/L (46-116) B-Type Natriuretic Peptide 247.32 pg/mL (0-100) Total Protein 7.0 g/dL (5.7-8.2) Albumin 4.2 g/dL (3.2-4.8) Magnesium Level 1.7 mg/dL (1.6-2.6) Troponin I High Sensitivity 62 ng/L (</=34) Hemoglobin A1c 5.3 % A1C (<5.7) Free Thyroxine (T4) Calculated 1.37 ng/dL (0.89-1.76) Free Triiodothyronine (T3) pg/mL 3.19 pg/mL (2.3-4.2) Test 04/03/25 03:00 04/03/25 02:56 04/03/25 02:06 04/02/25 23:05 Thyroid Stimulating Hormone (TSH) 7.75 uIU/mL (0.55-4.78) Urine Color Yellow (Yellow) Urine Clarity Turbid (Clear) Urine pH 5.0 (5.0-9.0) Urine Specific [place] 1.033 (1.001-1.035) Urine Protein 2+ (Negative) Urine Ketones Trace (Negative) Urine Blood Negative /uL (Negative) Urine Nitrite Negative (Negative) Urine Bilirubin Negative (Negative) Urine Urobilinogen Normal mg/dL (Negative) Urine Leukocyte Esterase Negative /uL (Negative) Urine RBC None seen /hpf (0 - 4) Urine Microscopic WBC 1 /HPF (0-5) Urine Squamous Epithelial Cells Few /hpf (<5) Urine Calcium Oxalate Crystals Mod (None Seen) Urine Bacteria None seen /hpf (None Seen) Urine Mucus Few (None Seen) Urine Glucose Normal mg/dL (Normal) Urine Opiates Screen Neg (NEGATIVE) Urine Fentanyl Screen Neg (NEGATIVE) Urine Barbiturates Screen Neg (NEGATIVE) Urine Phencyclidine Screen Neg (NEGATIVE) Urine Amphetamines Screen Neg (NEGATIVE) Urine Benzodiazepines Screen Neg (NEGATIVE) Urine Cocaine Screen Neg (NEGATIVE) Urine Cannabinoids Screen Neg (NEGATIVE) Triglycerides Level 66 mg/dL (< 150) Cholesterol Level 139 mg/dL (< 200) LDL Cholesterol 75 mg/dL (< 100) HDL Cholesterol 45 mg/dL (40-59) Prothrombin Time 11.4 sec (9.3-11.8) Prothrombin Time INR 1.08 (0.9-1.15) Activated Partial Thromboplast Time 26.8 SEC (24.5-34.5) D-Dimer, Quantitative 1.02 mg/L FEU (0.0-0.49) Other Laboratory Tests 04/07/25 07:59 Brief Hx & Hospital Course: History of Present Illness 59-year-old female presents for evaluation of shortness for breath. Patient with a history of congestive heart failure reports a one-week history of worsening shortness for breath with mild exertion. She also reports substernal chest pressure and bilateral lower extremity swelling. Course of hospitalization: Patient was started on aggressive IV diuresis, electrolyte replete, as well as attempts of initiating guideline directed therapy for heart failure after patient was found to have ejection fraction of 20%. Patient was refusing multiple different modalities including anticoagulation for her AFib, and is only allowing metoprolol tartrate with respect to treatment for her heart failure and IV Lasix. On multiple occasions she states that she does not trust taking medications, and would like a 2nd opinion. Cardiology has signed off here patient will be transferred to [facility] for further evaluation, recommendations. Patient was agreeable with discharge plan. All questions answered. Physical examination General: Alert and Oriented x3. No acute distress. Well-nourished. Eyes: EOMI. Anicteric. HENT: Moist mucous membranes. Lungs: Clear to auscultation bilaterally. No accessory muscle use. Cardiovascular: Regular rate and rhythm. No murmur. No JVD. Abdomen: Soft, non-tender and non-distended. No palpable masses. Extremities: No edema. Non-tender. Skin: No rashes or lesions. Warm. Neurologic: No focal neurological deficits. CN II-XII grossly intact, but not individually tested. Psychiatric: Cooperative. Appropriate mood and affect. Total time spent with patient discussing and formulating plan of care: 35 minutes. This medical document was created using an electronic medical record system with [employer] system. Although this document has been carefully reviewed, there may still be some phonetic and typographical errors. These areas are purely typographical due to imperfections of the software programs, and do not reflect any compromise in the patient's medical care. Consults/Reason for consult Cardiology: Acute systolic heart failure, atrial fibrillation with rapid ventricular rate Condition at Discharge: Poor Final Diagnosis/Problems List ACUTE HYPOXIC RESPIRATORY FAILURE Secondary diagnosis: -A.fib with RVR -Acute on Chronic Systolic Heart Failure -morbid obesity -bilateral lower extremity swelling, DVT ruled out -acute on chronic hypoxic respiratory failure -NSTEMI type 2 secondary to AFib with RVR and diastolic/systolic heart failure -hypothyroidism -Nonsustained ventricular tachycardia -medication noncompliance -hypokalemia Discharge Disposition: Acute Care Facility Discharge Instruct/Medications Diet: Cardiac 2g Na,low cholest Activity: Bed rest Follow Up/Referral: PER ACCEPTING PROVIDER Medications: SEE MED RECONCILIATION 36 Discharge Statement: "Patient was advised to return to the ER or call 911 if any headaches, dizziness, shortness of breath, chest pain, abdominal pain, bleeding, fevers, or worsening of medical condition. Patient was counseled about treatment plan, medications, possible side effects, patientverbalized understanding. All questions were answered to the best of my ability. This discharge took greater then 30 minutes in planning, reviewing documentation, counseling the patient, and discussing with other team members." ASSESSMENT ASSESSMENT Assessment ACUTE HYPOXIC RESPIRATORY FAILURE Date of Service: April 08, 2025 Billing Provider: LUDY JOSE NP Common Visit Codes: [id number] DISCH DAY >30min LUDY JOSE NP April 08, 2025 10:24
[2025-04-08 13:05] VITALS: BP 136/83; PULSE 136; RESP 20; TEMP 98.3; O2SAT 96
[2025-04-08 16:22] VITALS: BP 113/87; PULSE 111; RESP 20; TEMP 98; O2SAT 97
== END 2025-04-08 19:35 | disposition short-term general hospital (02) | DRG 280 ==
LOC: ER 22:42 → EDBD 22:42 → OVERFLOW 04-03 05:21 → TELE-WESTW 04-03 18:26
PROVIDERS: ADMIT Nurse Practitioner Acute Care; ATTEND Nurse Practitioner Acute Care
DX: I11.0 Hypertensive heart disease with heart failure (principal); I50.43 Acute on chronic combined systolic (congestive) and diastolic (congestive) heart failure; I21.A1 Myocardial infarction type 2; J96.21 Acute and chronic respiratory failure with hypoxia; I47.20 Ventricular tachycardia, unspecified; Z68.45 Body mass index [BMI] 70 or greater, adult; I27.20 Pulmonary hypertension, unspecified; E66.01 Morbid (severe) obesity due to excess calories; E03.9 Hypothyroidism, unspecified; E87.6 Hypokalemia; I50.82 Biventricular heart failure; I48.0 Paroxysmal atrial fibrillation; Z91.199 Patient's noncompliance with other medical treatment and regimen due to unspecified reason; Z79.899 Other long term (current) drug therapy
CPT/HCPCS: 36415; 71045; 80048; 80053; 80061; 80307; 81001; 83036; 83735; 83880; 84425; 84439; 84443; 84481; 84484; 85025; 85379; 85610; 85730; 93005; 93306; 93970; 96374; 99291; G0378